=== PATIENT | male | born 1995 | race Caucasian/White ===

== ENCOUNTER → 2016-11-25 | Day surgery (SDC) | payer OTHER ==
[~2016-11-25] MED LIST: NO MEDICATIONS
--- NOTE | ~2016-11-25 | OR ---
Unit #: [id number]: [id number] Patient: KELI RODRIGUEZ [id number] [address] [address] [id number] O MR#: [id number] NAME: KELI RODRIGUEZ ROOM: Date of Procedure: 11/25/2016 Admission Date: 11/25/2016 Surgeon: Ronaldo Martinez M.D. : 1995 Attending Physician: Ronaldo Martinez M.D. Primary Care Physician: Chasity Nunn OPERATIVE REPORT PREOPERATIVE DIAGNOSIS Left inguinal hernia. POSTOPERATIVE DIAGNOSIS Incarcerated indirect left inguinal hernia. PROCEDURE PERFORMED Laparoscopic preperitoneal inguinal hernia repair of incarcerated left inguinal hernia. IMPREGNATOR AND DRIER None. ANESTHESIA General. ESTIMATED BLOOD LOSS Minimal. IV FLUIDS 700 crystalloid. COMPLICATIONS None. INDICATIONS FOR PROCEDURE The patient is a 21-year-old with a bulge in his left groin consistent with an inguinal hernia. DESCRIPTION OF PROCEDURE The patient was taken to the operating theater and placed in a supine position. General anesthesia was induced. The abdomen was prepped and draped. Infraumbilical incision was then made. A small incision was made in the anterior sheath. I created the preperitoneal space with blunt dissection. A Veress needle was placed intra-abdominally. The abdomen was insufflated to 15 mmHg with CO2. I placed a 5-mm port in the umbilicus. The patient was placed in Trendelenburg. I identified left-sided indirect incarcerated hernia. This was reduced with external palpation. I saw no other abnormalities. The pneumoperitoneum was released. I then used the Auto[employer] balloon dissection system to create the Unit #: [id number] #: [id number] Patient: KELI RODRIGUEZ preperitoneal space in the left side only. I placed two 5-mm ports in the midline. I dissected the left groin and identifying Lee ligament. I created the lateral space and identified the cord. The cord was then skeletonized and the hernia sac from the cord and transected and then an Endoloop placed upon the proximal sac, thus creating a high ligation. I reduced the peritoneal reflection off the cord. I placed a large 3DMax mesh into position. This was anteriolized. This covered the direct and indirect spaces nicely. Pneumopreperitoneum was released with care taken to avoid the peritoneum sliding posterior to the mesh. Hemostasis was adequate. I removed the ports under direct vision and closed the fascia with 0 Vicryl and skin with 4-0 Vicryl. The patient tolerated the procedure well and sent to recovery room in good condition. Dictated by... Jaspreet Lindquist/leigh TD: 11/25/2016 15:39 JOB #: [id number] OPERATIVE REPORT Page 1 of 1 X Ronaldo Martinez MD X PROCEDURE OPERATIVE NOTE
== END | disposition home or self-care (01) ==
LOC: CSUR 08:36
DX: K40.90 Unilateral inguinal hernia, without obstruction or gangrene, not specified as recurrent (principal); F17.290 Nicotine dependence, other tobacco product, uncomplicated
CPT/HCPCS: C1781; J0330; J0690; J1100; J1644; J1885; J2250; J2405; J2710; J3010